=== PATIENT | male | born 1985 | race Caucasian/White ===

== ENCOUNTER 2018-06-04 14:05 | Emergency (ER) | payer MEDICAID, OTHER ==
[~2018-06-04] VITALS: Ht 188 cm; Wt 84.1 kg
[~2018-06-04 14:05] MED LIST: HYDR-4383 PO; IBUP-1986 PO; ONDA4TAB6 PO
[2018-06-04 14:31] VITALS: BP 111/78
[2018-06-04] MEDS ORDERED: acetaminophen 325mg tablet PO ONE (16:40)
== END 2018-06-04 18:22 | disposition home or self-care (01) ==
LOC: ER 14:05
DX: B34.9 Viral infection, unspecified (principal); F15.90 Other stimulant use, unspecified, uncomplicated; Z56.0 Unemployment, unspecified
CPT/HCPCS: 87502; 87503; 99283

== ENCOUNTER 2019-12-18 07:46 | Emergency (ER) | payer MEDICAID, OTHER ==
[~2019-12-18] VITALS: Ht 188 cm; Wt 59.0 kg
[2019-12-18 08:24] VITALS: BP 123/90
== END 2019-12-18 10:30 | disposition home or self-care (01) ==
LOC: ER 07:46
DX: K40.90 Unilateral inguinal hernia, without obstruction or gangrene, not specified as recurrent (principal); F15.90 Other stimulant use, unspecified, uncomplicated; Z72.89 Other problems related to lifestyle; Z56.0 Unemployment, unspecified; Z79.899 Other long term (current) drug therapy
CPT/HCPCS: 99281; 99283

== ENCOUNTER 2020-03-07 14:05 | Emergency (ER) | payer MEDICAID ==
[~2020-03-07] VITALS: Ht 188 cm; Wt 77.0 kg
[2020-03-07] MEDS ORDERED: ASPI-611 PO (15:36)
[2020-03-07] MEDS ORDERED: CITA20TA28 PO (15:36)
[2020-03-07] MEDS ORDERED: DIVA-74 PO (15:36)
[2020-03-07] MEDS ORDERED: LACT10SO57 PO (15:39)
[2020-03-07] MEDS ORDERED: PANT40TA54 PO (15:40)
[2020-03-07] MEDS ORDERED: RISP0.5T3 PO (15:40)
[2020-03-07] MEDS ORDERED: BACL-11 PO (15:41)
[2020-03-07 15:42] VITALS: BP 133/83
[2020-03-07] MEDS ORDERED: SENN-263 PO (15:42)
[2020-03-07] MEDS ORDERED: CARB200C7 PO (15:42)
== END 2020-03-07 15:43 | disposition home or self-care (01) ==
LOC: ER 14:06
DX: S83.91XA Sprain of unspecified site of right knee, initial encounter (principal); F15.90 Other stimulant use, unspecified, uncomplicated; Z56.0 Unemployment, unspecified; Z72.89 Other problems related to lifestyle; Z79.899 Other long term (current) drug therapy; W19.XXXA Unspecified fall, initial encounter; Y93.89 Activity, other specified; Y92.89 Other specified places as the place of occurrence of the external cause; Y99.8 Other external cause status
CPT/HCPCS: 29505; 73564; 99283

== ENCOUNTER 2020-08-28 13:08 | Emergency (ER) | payer MEDICAID ==
[~2020-08-28] VITALS: Ht 188 cm; Wt 79.5 kg
[~2020-08-28 13:08] MED LIST changes: +ASPI-611 PO; +BACL-11 PO; +CARB200C7 PO; +CITA20TA28 PO; +DIVA-74 PO; +LACT10SO57 PO; +PANT40TA54 PO; +RISP0.5T65 PO; +SENN-263 PO
[2020-08-28] MEDS ORDERED: ketorolac tromethamine 15mg/ml inj. IM ONE (13:25)
[2020-08-28] MEDS ORDERED: IBUP-1984 PO (13:29)
[2020-08-28] MEDS ORDERED: ibuprofen tablet 400 MG TABLET PO ONE (13:30)
[2020-08-28 13:34] VITALS: BP 117/76
--- NOTE | 2020-08-28 13:34 | NUR ---
Alisia Martin [id number]
== END 2020-08-28 13:36 | disposition home or self-care (01) ==
LOC: ER 13:08
DX: K46.9 Unspecified abdominal hernia without obstruction or gangrene (principal); F15.90 Other stimulant use, unspecified, uncomplicated; Z72.89 Other problems related to lifestyle; Z56.0 Unemployment, unspecified; Z79.82 Long term (current) use of aspirin; Z79.899 Other long term (current) drug therapy
CPT/HCPCS: 99283

== ENCOUNTER 2020-09-01 18:25 | Emergency (ER) | payer MEDICAID ==
[~2020-09-01] VITALS: Ht 188 cm; Wt 81.8 kg
[~2020-09-01 18:25] MED LIST changes: +IBUP-1984 PO
[2020-09-01 18:29] VITALS: BP 147/85
[2020-09-01 19:24] LABS: CLARITY,URINE CLOUDY (Clear); COLOR,URINE YELLOW (Yellow); GLUCOSE, URINE NEGATIVE (Neg); KETONES,URINE NEGATIVE (Neg); LEUKOCYTE ESTERASE ,URINE MODERATE (Neg); NITRITES, URINE NEGATIVE (Neg); OCCULT BLOOD,URINE TRACE-INTACT (Neg); PROTEIN,URINE NEGATIVE (Neg); UROBILINOGEN,URINE 0.2 E.U/dL (0.2-1.0)
[2020-09-01] MEDS ORDERED: azithromycin 250mg tablet PO ONE (19:25)
[2020-09-01] MEDS ORDERED: CefTRIAXone 250MG IM Kit w/LIDOcaine IM ONE (19:25)
[2020-09-01 19:31] LABS: UA COLLECTION TYPE CLN CATCH MIDSTREAM
[2020-09-01 19:32] LABS: WBC,URINE TNTC /HPF (0-4)
[2020-09-01 19:34] LABS: BACTERIA,URINE FEW /HPF (Neg); RBC,URINE 0-2 /HPF (0-2); SQUAMOUS EPITHELIAL CELL,UR NONE SEEN /LPF (FEW); WBC CLUMPS,URINE MODERATE /HPF (NEGATIVE)
== END 2020-09-01 19:53 | disposition home or self-care (01) ==
LOC: ER 18:26
DX: A64 Unspecified sexually transmitted disease (principal); R30.0 Dysuria; F15.90 Other stimulant use, unspecified, uncomplicated; Z72.89 Other problems related to lifestyle; Z56.0 Unemployment, unspecified; Z79.82 Long term (current) use of aspirin; Z79.899 Other long term (current) drug therapy
CPT/HCPCS: 36415; 81001; 87088; 87491; 87591; 96372; 99283; J0696